=== PATIENT | female | born 1995 | race African-American/Black ===

== ENCOUNTER 2018-05-23 14:25 | Inpatient (IN) | payer OTHER ==
[~2018-05-23] VITALS: Ht 162.6 cm; Wt 66.2 kg
[2018-05-23 14:30] VITALS: BP 113/62
[2018-05-23] MEDS ORDERED: DOCUSATE SODIUM 283 MG/5 ML MINI-ENEMA PR PRN (16:45)
[2018-05-23] MEDS ORDERED: ACETAMINOPHEN 325 MG TABLET PO PRN (16:45)
[2018-05-23 20:02] LABS: APPEARANCE,URINE CLEAR (CLEAR); BILIRUBIN,URINE NEGATIVE (NEGATIVE); GLUCOSE, URINE (UA) NEGATIVE (NEGATIVE); KETONES,URINE NEGATIVE (NEGATIVE); LEUKOCYTE ESTERASE ,URINE NEGATIVE (NEGATIVE); NITRATE,URINE NEGATIVE (NEGATIVE); OCCULT BLOOD,URINE MODERATE (NEGATIVE); PROTEIN,URINE NEGATIVE (NEGATIVE); UROBILINOGEN,URINE 0.2 mg/dL (<=1.0)
[2018-05-23 20:34] LABS: WBC,URINE 0-2 /HPF (0-5)
[2018-05-23 20:35] LABS: BACTERIA,URINE None Seen /HPF (None Seen); SQUAMOUS EPITHELIAL CELL,UR Few /LPF (None Seen)
[2018-05-23] MEDS: DOCUSATE SODIUM 100 MG CAPSULE PO SCH (21:00)
[2018-05-23] MEDS: SENNA 187 MG TABLET PO SCH (21:00)
[2018-05-23 23:48] VITALS: BP 96/50
[2018-05-24 07:57] LABS: BASOPHILS % (AUTO) 0.6 % (0.0-2.0); EOSINOPHILS % (AUTO) 2.8 % (1.0-6.0); HEMATOCRIT 28.6 % (36-46); HEMOGLOBIN 9.8 g/dL (12.0-16.0); LYMPHOCYTES % (AUTO) 27.2 % (22.0-44.0); MEAN CORPUSCULAR HEMOGLOBIN 28.6 pg (26.0-34.0); MEAN CORPUSCULAR HGB CONC 34.1 G/dL (31.0-37.0); MEAN CORPUSCULAR VOLUME 84 fL (80-100); MONOCYTES # (AUTO) 0.7 K/uL (0.1-1.0); MONOCYTES % (AUTO) 9.1 % (2.0-9.0); NEUTROPHILS # (AUTO) 4.5 K/uL (1.8-7.7); NEUTROPHILS % (AUTO) 60.3 % (40.0-70.0); PLATELET COUNT (AUTO) 302 K/uL (150-450); RED BLOOD CELL COUNT(AUTO) 3.41 MIL/uL (4.00-5.20); RED CELL DISTRIBUTION WIDTH 13.9 % (11.5-14.5)
[2018-05-24 08:13] LABS: ALANINE AMINOTRANSFERASE 528 U/L (12-78); ALBUMIN 2.8 g/dL (3.4-5.0); ALKALINE PHOSPHATASE 64 U/L (46-116); ANION GAP 7 mmol/L (8-16); ASPARTATE AMINOTRANSFERASE 178 U/L (15-37); BILIRUBIN,TOTAL 0.4 mg/dL (0.1-1.0); CALCIUM, TOTAL 8.4 mg/dL (8.8-10.5); CARBON DIOXIDE 28 mmol/L (22-29); CHLORIDE 106 mmol/L (98-107); CREATININE 0.74 mg/dL (0.60-1.30); GLOMERULAR FILTR. RATE CALC > 60 mL/min (>60); GLUCOSE,RANDOM 92 mg/dL (70-110); SODIUM SERUM 141 mmol/L (136-145); TOTAL PROTEIN, SERUM 5.5 g/dL (6.4-8.2); UREA NITROGEN, BLOOD 10 mg/dL (7-18)
[2018-05-24 08:43] VITALS: BP 99/61
[2018-05-24] MEDS: DOCUSATE SODIUM 100 MG CAPSULE PO SCH ×2 (09:59→21:00)
[2018-05-24] MEDS: LevETIRAcetam 500 MG TABLET PO SCH (09:59)
[2018-05-24 16:00] VITALS: BP 115/66
[2018-05-24] MEDS: SENNA 187 MG TABLET PO SCH (21:00)
[2018-05-25 00:27] VITALS: BP 119/64
[2018-05-25 07:33] VITALS: BP_SYST 100; BP_SYST 133; BP_DIAS 63; BP_DIAS 74
[2018-05-25] MEDS: LevETIRAcetam 500 MG TABLET PO SCH (09:22)
[2018-05-25] MEDS: DOCUSATE SODIUM 100 MG CAPSULE PO SCH ×2 (09:22→20:25)
[2018-05-25 15:17] VITALS: BP 111/58
[2018-05-25] MEDS: SENNA 187 MG TABLET PO SCH (20:25)
[2018-05-25 21:15] VITALS: BP 107/65
[2018-05-26 00:16] VITALS: BP 113/71
[2018-05-26 07:59] VITALS: BP 105/58
[2018-05-26] MEDS: LevETIRAcetam 500 MG TABLET PO SCH (09:59)
[2018-05-26] MEDS: DOCUSATE SODIUM 100 MG CAPSULE PO SCH ×2 (10:10→10:11)
[2018-05-26 15:29] VITALS: BP 98/56
[2018-05-26 18:40] VITALS: BP 109/53
[2018-05-26] MEDS: SENNA 187 MG TABLET PO SCH (21:00)
[2018-05-26 23:32] VITALS: BP 106/57
[2018-05-27 07:30] VITALS: BP 100/52
[2018-05-27] MEDS: LevETIRAcetam 500 MG TABLET PO SCH (08:21)
[2018-05-27] MEDS: DOCUSATE SODIUM 100 MG CAPSULE PO SCH ×2 (08:21→21:00)
[2018-05-27 16:06] VITALS: BP 109/57
[2018-05-28] MEDS ORDERED: LEVE500T53 PO (00:36)
[2018-05-28 00:45] VITALS: BP 112/56
[2018-05-28 08:00] VITALS: BP 104/58
[2018-05-28] MEDS: LevETIRAcetam 500 MG TABLET PO SCH (08:45)
[2018-05-28] MEDS: DOCUSATE SODIUM 100 MG CAPSULE PO SCH ×2 (08:46→20:38)
[2018-05-28 15:40] VITALS: BP 100/54
[2018-05-28] MEDS: FERROUS SULFATE 325 MG EC TABLET PO SCH (20:36)
[2018-05-28] MEDS ORDERED: FERROUS SULFATE 325 MG EC TABLET PO SCH (21:00)
[2018-05-28 23:21] VITALS: BP 108/68
[2018-05-29 07:00] VITALS: BP 121/70
[2018-05-29] MEDS: LevETIRAcetam 500 MG TABLET PO SCH (09:08)
[2018-05-29] MEDS: DOCUSATE SODIUM 100 MG CAPSULE PO SCH ×2 (09:08→20:53)
[2018-05-29] MEDS: FERROUS SULFATE 325 MG EC TABLET PO SCH ×2 (09:08→20:51)
[2018-05-29 15:20] VITALS: BP 114/72
[2018-05-29] MEDS: MELATONIN 3 MG TABLET PO SCH (20:51)
[2018-05-29] MEDS ORDERED: MELATONIN 3 MG TABLET PO SCH (21:00)
[2018-05-30 07:32] VITALS: BP 101/58
[2018-05-30] MEDS: DOCUSATE SODIUM 100 MG CAPSULE PO SCH ×2 (08:34→20:31)
[2018-05-30] MEDS: FERROUS SULFATE 325 MG EC TABLET PO SCH ×2 (08:34→20:31)
[2018-05-30] MEDS: LevETIRAcetam 500 MG TABLET PO SCH ×3 (08:34→20:31)
[2018-05-30 15:31] VITALS: BP 99/53
[2018-05-30] MEDS: MELATONIN 3 MG TABLET PO SCH (20:31)
[2018-05-31] MEDS: FERROUS SULFATE 325 MG EC TABLET PO SCH ×2 (08:48→21:00)
[2018-05-31] MEDS: DOCUSATE SODIUM 100 MG CAPSULE PO SCH ×2 (08:48→21:00)
[2018-05-31 08:57] VITALS: BP 110/63
[2018-05-31] MEDS: LevETIRAcetam 500 MG TABLET PO SCH (21:00)
[2018-05-31] MEDS: MELATONIN 3 MG TABLET PO SCH (21:00)
[2018-06-01 00:30] VITALS: BP 124/64
[2018-06-01] MEDS: MELATONIN 3 MG TABLET PO SCH ×2 (00:45→20:31)
[2018-06-01] MEDS: LevETIRAcetam 500 MG TABLET PO SCH ×2 (00:45→20:31)
[2018-06-01 08:00] VITALS: BP 107/56
[2018-06-01] MEDS: DOCUSATE SODIUM 100 MG CAPSULE PO SCH ×2 (11:35→20:31)
[2018-06-01] MEDS: FERROUS SULFATE 325 MG EC TABLET PO SCH ×2 (11:35→20:31)
[2018-06-01 15:28] VITALS: BP 98/53
[2018-06-01 22:14] VITALS: BP 101/55
[2018-06-02 08:00] VITALS: BP 119/59
[2018-06-02] MEDS: DOCUSATE SODIUM 100 MG CAPSULE PO SCH ×2 (08:15→20:20)
[2018-06-02] MEDS: FERROUS SULFATE 325 MG EC TABLET PO SCH ×2 (08:15→20:20)
[2018-06-02 15:25] VITALS: BP 114/68
[2018-06-02] MEDS: LevETIRAcetam 500 MG TABLET PO SCH (20:21)
[2018-06-02] MEDS: MELATONIN 3 MG TABLET PO SCH (20:21)
[2018-06-02] MEDS ORDERED: FERR325T22 PO (22:22)
[2018-06-02] MEDS ORDERED: MELA3TAB66 PO (22:25)
[2018-06-03 07:32] VITALS: BP 108/68
[2018-06-03] MEDS: FERROUS SULFATE 325 MG EC TABLET PO SCH (08:53)
[2018-06-03] MEDS: DOCUSATE SODIUM 100 MG CAPSULE PO SCH (08:53)
== END 2018-06-03 10:40 | disposition short-term general hospital (02) | DRG 91 ==
LOC: 2WR 14:25
DX: G93.1 Anoxic brain damage, not elsewhere classified (principal); J96.00 Acute respiratory failure, unspecified whether with hypoxia or hypercapnia; J69.0 Pneumonitis due to inhalation of food and vomit; I46.9 Cardiac arrest, cause unspecified; M62.82 Rhabdomyolysis; N17.9 Acute kidney failure, unspecified; R26.9 Unspecified abnormalities of gait and mobility; F17.200 Nicotine dependence, unspecified, uncomplicated; D64.9 Anemia, unspecified; G31.84 Mild cognitive impairment of uncertain or unknown etiology; F43.22 Adjustment disorder with anxiety; G47.00 Insomnia, unspecified; K59.00 Constipation, unspecified; Z81.3 Family history of other psychoactive substance abuse and dependence; Z82.3 Family history of stroke
CPT/HCPCS: 87081; 92507; 92508; 92523; 97110; 97112; 97116; 97150; 97162; 97165; 97530; 97535; 99366

== ENCOUNTER 2020-04-19 15:56 | Inpatient (IN) | payer OTHER ==
[~2020-04-19] VITALS: Ht 165.1 cm; Wt 129.0 kg
[~2020-04-19 15:56] MED LIST: FERR325T22 PO; LEVE500T53 PO; MELA3TAB82 PO
[2020-04-19] MEDS ORDERED: GABA800T9 PO (16:16)
[2020-04-19] MEDS ORDERED: BUSP10TA23 PO (16:16)
[2020-04-19] MEDS ORDERED: FEXO-58 PO (16:16)
[2020-04-19] MEDS ORDERED: QUET100T33 PO (16:16)
[2020-04-19] MEDS ORDERED: CHARCOAL/SORBITOL 50 GM/240 ML SUSPENSION PO ONE (16:45)
[2020-04-19 17:01] LABS: GLUCOSE,POINT OF CARE 78 MG/DL (70-110)
[2020-04-19 17:02] LABS: BASOPHILS % (AUTO) 0.4 % (0.0-2.0); EOSINOPHILS % (AUTO) 1.8 % (1.0-6.0); HEMATOCRIT 36.4 % (36-46); HEMOGLOBIN 11.9 g/dL (12.0-16.0); LYMPHOCYTES # (AUTO) 1.4 K/uL (1.0-4.8); LYMPHOCYTES % (AUTO) 20.4 % (22.0-44.0); MEAN CORPUSCULAR HEMOGLOBIN 26.4 pg (26.0-34.0); MEAN CORPUSCULAR HGB CONC 32.7 G/dL (31.0-37.0); MEAN CORPUSCULAR VOLUME 81 fL (80-100); MONOCYTES # (AUTO) 0.6 K/uL (0.1-1.0); NEUTROPHILS # (AUTO) 4.8 K/uL (1.8-7.7); NEUTROPHILS % (AUTO) 69.4 % (40.0-70.0); PLATELET COUNT (AUTO) 241 K/uL (150-450)
[2020-04-19 17:19] LABS: ANION GAP 6 mmol/L (8-16); CALCIUM, TOTAL 8.7 mg/dL (8.8-10.5); CARBON DIOXIDE 27 mmol/L (22-29); CHLORIDE 105 mmol/L (98-107); CREATININE 0.65 mg/dL (0.60-1.30); GLOMERULAR FILTR. RATE CALC > 60 mL/min (>60); GLUCOSE,RANDOM 91 mg/dL (70-110); POTASSIUM 3.4 mmol/L (3.5-5.1); SALICYLATE 0.8 mg/dL (2.8-20.0); SODIUM SERUM 138 mmol/L (136-145); UREA NITROGEN, BLOOD 10 mg/dL (7-18)
[2020-04-19 17:31] LABS: ALANINE AMINOTRANSFERASE 23 U/L (12-78); ALBUMIN 3.4 g/dL (3.4-5.0); ALKALINE PHOSPHATASE 88 U/L (46-116); ASPARTATE AMINOTRANSFERASE 16 U/L (15-37); BILIRUBIN,TOTAL 0.2 mg/dL (0.1-1.0); HCG,QUANTITATIVE 1 mIU/mL (0-6); TOTAL PROTEIN, SERUM 6.7 g/dL (6.4-8.2)
[2020-04-19 17:32] LABS: ACETAMINOPHEN < 2 mcg/mL (10-30)
[2020-04-19] MEDS ORDERED: SODIUM CHLORIDE 0.9% 1,000 ML ONE ×2 (18:16)
[2020-04-19] MEDS ORDERED: SODIUM CHLORIDE 0.9% 2,000 ML IV ONE (18:30)
[2020-04-19] MEDS ORDERED: QUEtiapine FUMARATE 100 MG TABLET PO PRN (20:45)
[2020-04-19] MEDS ORDERED: ZOLPIDEM TARTRATE 10 MG TABLET PO PRN (20:45)
[2020-04-19] MEDS ORDERED: LORazepam 2 MG TABLET PO PRN (20:45)
[2020-04-19] MEDS ORDERED: POTASSIUM CHLORIDE 10% 40 MEQ/30 ML LIQUID UDCUP PO ONE (21:00)
[2020-04-20 01:10] VITALS: BP 128/93
[2020-04-20 07:39] LABS: CHOL/HDL RATIO 3.5 (3.9-5.7)
[2020-04-20] MEDS ORDERED: NICOTINE 14 MG/24 HOUR PATCH TD PRN ×2 (08:30)
[2020-04-20] MEDS ORDERED: DOCUSATE SODIUM 100 MG CAPSULE PO PRN (08:30)
[2020-04-20] MEDS ORDERED: CloNIDine HCL 0.1 MG TABLET PO PRN ×2 (08:30)
[2020-04-20] MEDS ORDERED: IBUPROFEN 400 MG TABLET PO PRN (08:30)
[2020-04-20] MEDS ORDERED: GuaiFENesin/D-METHORPHAN [SUGAR-FREE] 200-20MG/10 ML SYRUP UDCUP PO PRN ×2 (08:30)
[2020-04-20] MEDS ORDERED: ONDANSETRON HCL 4 MG TABLET PO PRN (08:30)
[2020-04-20] MEDS ORDERED: LOPERAMIDE HCL 2 MG CAPSULE PO PRN ×2 (08:30)
[2020-04-20] MEDS ORDERED: ALBUTEROL SULFATE HFA 90 MCG/PUFF 8 GM INHALER IH PRN (08:30)
[2020-04-20] MEDS ORDERED: ACETAMINOPHEN 325 MG TABLET PO PRN (08:30)
[2020-04-20] MEDS ORDERED: PETROLATUM,WHITE 28 GM JELLY TP PRN (08:30)
[2020-04-20] MEDS ORDERED: MAG HYDROX/AL HYDROX/SIMETH ES 30 ML SUSPENSION UDCUP PO PRN (08:30)
[2020-04-20] MEDS ORDERED: QUET25TA PO (09:34)
[2020-04-20] MEDS ORDERED: PRAZ2 PO (09:38)
[2020-04-20] MEDS ORDERED: HYDR-4031 PO (09:38)
[2020-04-20] MEDS ORDERED: VENL-68 PO (09:38)
[2020-04-20] MEDS ORDERED: VENL-67 PO (09:38)
[2020-04-20] MEDS ORDERED: TRAZ150 PO (09:38)
[2020-04-20] MEDS ORDERED: HYDR50CA9 PO (09:38)
[2020-04-20] MEDS: VENLAFAXINE HCL 75 MG ER CAPSULE PO SCH (10:08)
[2020-04-20 11:00] VITALS: BP 116/62
[2020-04-20] MEDS: GABAPENTIN 400 MG CAPSULE PO SCH ×2 (14:25→16:41)
[2020-04-20 17:01] VITALS: BP 135/86
[2020-04-20] MEDS: QUEtiapine FUMARATE 100 MG TABLET PO SCH (21:47)
[2020-04-20] MEDS: PRAZOSIN HCL 2 MG CAPSULE PO SCH (21:47)
[2020-04-20] MEDS: TraZODone HCL 150 MG TABLET PO SCH (21:47)
[2020-04-20 21:53] VITALS: BP 123/78
[2020-04-21 09:33] VITALS: BP 112/71
[2020-04-21] MEDS: VENLAFAXINE HCL 75 MG ER CAPSULE PO SCH (11:08)
[2020-04-21] MEDS: GABAPENTIN 400 MG CAPSULE PO SCH ×3 (11:09→16:26)
[2020-04-21 16:18] VITALS: BP 116/74
[2020-04-21] MEDS: PRAZOSIN HCL 2 MG CAPSULE PO SCH (20:29)
[2020-04-21] MEDS: TraZODone HCL 150 MG TABLET PO SCH (20:30)
[2020-04-21] MEDS: QUEtiapine FUMARATE 100 MG TABLET PO SCH (20:30)
[2020-04-21 20:53] VITALS: BP 112/75
[2020-04-22] MEDS: MAGNESIUM HYDROXIDE SUSPENSION 30 ML UDCUP PO PRN ×2 (06:16→08:41)
[2020-04-22 08:00] VITALS: BP 90/60
[2020-04-22] MEDS: GABAPENTIN 400 MG CAPSULE PO SCH ×2 (08:17→13:14)
[2020-04-22] MEDS: VENLAFAXINE HCL 75 MG ER CAPSULE PO SCH (08:17)
[2020-04-22] MEDS ORDERED: VENL-67 PO (13:25)
== END 2020-04-22 14:32 | disposition home or self-care (01) | DRG 885 ==
LOC: EMS 15:57 → 3EI 21:30
DX: F33.2 Major depressive disorder, recurrent severe without psychotic features (principal); T43.592A Poisoning by other antipsychotics and neuroleptics, intentional self-harm, initial encounter; D64.9 Anemia, unspecified; E86.0 Dehydration; E87.6 Hypokalemia; I95.9 Hypotension, unspecified; R00.0 Tachycardia, unspecified; F17.210 Nicotine dependence, cigarettes, uncomplicated; F43.12 Post-traumatic stress disorder, chronic; G40.909 Epilepsy, unspecified, not intractable, without status epilepticus; Z79.899 Other long term (current) drug therapy; Z91.5 Personal history of self-harm; Y92.89 Other specified places as the place of occurrence of the external cause; Z91.013 Allergy to seafood
CPT/HCPCS: 93005; 99291; G0480; G0481; J7030